=== PATIENT | male | born 1985 | race Hispanic/Latino ===

== ENCOUNTER 2019-04-02 21:51 | Emergency (ER) | payer SELFPAY ==
[2019-04-02] MEDS: HYDROcodone 7.5MG/APAP 325MG 1 EA TAB PO ONE (22:44)
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
[2019-04-03] MEDS ORDERED: NEOMYCIN-BACITRACIN-POLYMYXIN 0.9 GM UD TOP ONE (00:21)
[2019-04-03] MEDS ORDERED: CHLORHEXIDINE GLUCONATE 4 % 15 ML UD TOP ONE (00:22)
[2019-04-03 00:55] VITALS: BP 145/82; TEMP 99; O2SAT 99
== END 2019-04-03 00:59 | disposition home or self-care (01) ==
LOC: ER 21:51
DX: S40.211A Abrasion of right shoulder, initial encounter (principal); S60.512A Abrasion of left hand, initial encounter; S00.81XA Abrasion of other part of head, initial encounter; R51 Headache; M54.2 Cervicalgia; V29.9XXA Motorcycle rider (driver) (passenger) injured in unspecified traffic accident, initial encounter; Y92.410 Unspecified street and highway as the place of occurrence of the external cause